=== PATIENT | male | born 1950 | race Caucasian/White ===

== ENCOUNTER 2017-03-16 08:58 | Emergency (ER) | payer OTHER, BC ==
[2017-03-16 09:05] VITALS: BP 160/85; PULSE 57; TEMP 98.9; BMI 33.2
--- NOTE | 2017-03-16 09:12 | PDOC ---
History of Present Illness - General Chief Complaint: Itching Stated Complaint: RIGHT HAND ITCHING, SWELLING Time Seen by Provider: 03/16/17 08:59 History Source: Patient Exam Limitations: No Limitations - History of Present Illness Initial Comments: 03/16/17 08:59 THis is a 67 yo RHD M with a history of hyperlipidemia who presents to the ER with a complaint of right hand itching Pt states that his symptoms began probably yesterday His girlfriend placed a cream on his hand to help with the itching No fevers or chills No pain No diaphoresis Pt has not contacted any new soaps or detergents No new foods No history of allergies No other lesions on his body PMH: HLD, Gout PSH:Bilateral Hip replacements Meds: Crestor, Asa 81 ALL: NKDA Social: denies drug use GENERAL/CONSTITUTIONAL: No: fever, chills, weakness, loss of appetite. SKIN: Yes: right hand lesions x 2 No: pallor, rash or easy bruising. GENERAL: The patient is in no acute distress. EXTREMITIES: Normal range of motion, no edema. No clubbing or cyanosis. No erythema, or tenderness. SKIN: Yes: right hand lesions x 2, erythematous urticarial lesions Past History - Past Medical History Allergies/Adverse Reactions: Allergies Allergy/AdvReac Type Severity Reaction Status Date / Time No Known Allergies Allergy Verified 03/16/17 09:01 Home Medications: Ambulatory Orders Rosuvastatin Calcium [Crestor] 10 mg PO DAILY 09/03/12 Aspirin [Aspirin EC] 81 mg PO DAILY 02/21/16 Cholecalciferol (Vitamin D3) [Vitamin D] 1,000 unit PO DAILY 02/21/16 Multivitamins [Tab-A-Vit -] 1 tab PO DAILY 02/21/16 Diphenhydramine HCl [Benadryl -] 25 mg PO Q8H PRN #10 capsule 03/16/17 Diphenhydramine [Benadryl 1% Cream -] 1 applic TP TID PRN #1 tube 03/16/17 Hydrocortisone 0.5% Cream [Hytone 0.5% Cream -] 1 applic TP TID PRN #1 tube 08/01 Anemia: No Asthma: No Cancer: No Cardiac Disorders: Yes (mvp) CVA: No COPD: No CHF: No Dementia: No Diabetes: No GI Disorders: No Disorders: No HTN: No Hypercholesterolemia: Yes Liver Disease: No Seizures: No Thyroid Disease: No - Surgical History Abdominal Surgery: No Appendectomy: No Cardiac Surgery: No Cholecystectomy: No Lung Surgery: No Neurologic Surgery: No Orthopedic Surgery: Yes (janna hip replacements) - Psycho/Social/Smoking Cessation Hx Anxiety: No Suicidal Ideation: No Smoking Status: No Smoking History: Never smoked Have you smoked in the past 12 months: No Number of Cigarettes Smoked Daily: 0 Hx Alcohol Use: No Drug/Substance Use Hx: No Substance Use Type: None Medical Decision Making - Medical Decision Making Will discharge to home Topical treatments Monitor for super infection *DC/Admit/Observation/Transfer Diagnosis at time of Disposition: Bug bite of right hand Qualifiers: Encounter type: initial encounter Qualified Code(s): S60.561A - Insect bite ( nonvenomous) of right hand, initial encounter - Discharge Dispostion Disposition: HOME Condition at time of disposition: Stable Admit: No - Prescriptions Prescriptions: Diphenhydramine [Benadryl 1% Cream -] 1 applic TP TID PRN #1 tube PRN Reason: itching Diphenhydramine HCl [Benadryl -] 25 mg PO Q8H PRN #10 capsule PRN Reason: Itching Hydrocortisone 0.5% Cream [Hytone 0.5% Cream -] 1 applic TP TID PRN #1 tube PRN Reason: itching - Referrals Referrals: Nivia Rose MD [Primary Care Provider] - - Patient Instructions Printed Discharge Instructions: DI for Insect Bites and Stings, DI for Spider Bites Additional Instructions: Thank you for coming in to the ER You can take Benadryl for itching You can apply hydrocortisone cream You can also apply Caladryl cream Monitor for increased redness or swelling Monitor yourself for fevers or chills Do not itch to the point that you cut open the skin ENJOY YOUR TRIP!!!
== END 2017-03-16 09:25 | disposition home or self-care (01) ==
LOC: SUPCPDRO 08:58 → FER 08:58
DX: S60.561A Insect bite (nonvenomous) of right hand, initial encounter (principal); X58.XXXA Exposure to other specified factors, initial encounter; Y93.89 Activity, other specified; Y92.9 Unspecified place or not applicable; E78.5 Hyperlipidemia, unspecified; I34.1 Nonrheumatic mitral (valve) prolapse
CPT/HCPCS: 99282-25

== ENCOUNTER 2017-11-23 07:29 | Day surgery (SDC) | payer OTHER, BC ==
[2017-11-22 15:58] VITALS: BMI 33.6
--- NOTE | 2017-11-23 10:30 | HP ---
History & Physical Update - History History: No Change - Physical Physical: No Change - Assessment Assessment: No Change - Plan Plan: No Change (He is being operated for left inguinal hernia with mesh. He has stopped aspirin . Procedure has been explained, site marked, and consent obtained.)
[2017-11-23] MEDS ORDERED: BUPIVACAINE HCL/PF 0.5% (5MG/ML) 10 ML VIAL ONE ×2 (11:23→14:03)
[2017-11-23] MEDS ORDERED: BUPIVACAINE HCL/PF 0.75% 10 ML VIAL ONE (11:24)
[2017-11-23] MEDS ORDERED: ceFAZolin SODIUM 1 GM VIAL IVPB ONE (11:38)
[2017-11-23] MEDS ORDERED: PROPOFOL 20 ML ONE ×2 (11:45→12:54)
[2017-11-23] MEDS ORDERED: MIDAZOLAM HCL 2 MG/2 ML SINGLE DOSE VIAL ONE ×3 (11:45→12:32)
[2017-11-23] MEDS ORDERED: ceFAZolin SODIUM 1 GM VIAL ONE (11:57)
[2017-11-23] MEDS ORDERED: ePHEDrine SULFATE 50 MG/1 ML AMPULE ONE (12:07)
[2017-11-23] MEDS ORDERED: BUPIVACAINE HCL/PF 0.5% (5MG/ML) 10 ML VIAL IJ ONE (13:31)
--- NOTE | 2017-11-23 14:12 | OP ---
Operative Note - Note: Operative Date: 11/23/17 Operation: Large incarcerated left inguinal hernia. Findings: Large direct inguinal hernia with adhesions. Patient is s/p varococelectomy. Defect throughout the posterior wall of the inguinal canal. Repaired with 2 plugs and a mesh. Implants: Plug and mesh. Surgeon: Hank Williamson Anesthesiologist/UNDER PRESSER: Lamont Richards Anesthesia: Spinal Specimens Removed: Lipoma of the cord. Estimated Blood Loss (mls): 5 Operative Report Dictated: Yes
[2017-11-23] MEDS ORDERED: ONDANSETRON 4 MG/2 ML VIAL IVPUSH PRN (14:20)
[2017-11-23] MEDS ORDERED: oxyCODONE HCL 5 MG TABLET PO PRN (14:20)
[2017-11-23] MEDS ORDERED: LACTATED RINGERS SOLUTION 1,000 ML IV SCH (14:30)
--- NOTE | 2017-11-23 16:12 | OP ---
DATE OF OPERATION: 11/23/2017 POSTOPERATIVE DIAGNOSIS: Very large incarcerated direct left inguinal hernia with extensive adhesions from previous varicocelectomy. PROCEDURE PERFORMED: Repair of large incarcerated inguinal hernia on the left side with plug and mesh, and lysis of adhesions. SURGEON: Jaimie Williamson MD ANESTHESIA: Spinal anesthesia with intravenous sedation. ESTIMATED BLOOD LOSS: Less than 10 mL. INDICATIONS: This 67-year-old gentleman with severe anxiety had a large incarcerated left inguinal hernia. There was a large bulge which was painful and increasing in size. He had previous varicocelectomy many years ago on the same side. Impulse on cough on the right side. The patient was brought in for repair of the incarcerated left inguinal hernia. Different modalities of treatment, from open approach to a laparoscopic approach, had been discussed with the patient in the office. DESCRIPTION OF PROCEDURE: The patient was given spinal anesthesia and placed on the operating table. He was also given intravenous sedation. He was quite anxious and has a history of anxiety. The lower abdomen was painted and draped. A time- out was called. An oblique incision was made along the skin crease in the left groin. This was deepened to incise the skin, subcutaneous tissue, Thor fascia and the external oblique aponeurosis. There was dense scar tissue on the middle aspect of the left groin. This was carefully and the cord structures were and identified. This was isolated around a 1/2-inch Cooper drain. The patient lacked any musculature of the posterior wall of the inguinal canal. There was protrusion of the peritoneum and the abdominal contents through the posterior wall of the inguinal canal. This was carefully from the rest of the cord structures. There was some large subcutaneous fat and lipoma of the cord which was excised. Once this was done, the peritoneum was pushed into the abdomen. There was a defect from the pubic symphysis to the cord structures, viz. complete posterior wall of the inguinal canal. The was then dissected, again all adhesions. Two large plugs were then inserted through the defect, pushing the peritoneum backwards. The medial plug was sutured inferiorly to Los ligament or to the surface of the pubic crest with 2-0 Prolene sutures. Superiorly, the superior leaf of the mesh of the plug , was anchored to the posterior wall of the inguinal canal, namely the transversalis and the internal oblique muscles and fscia. A 2-0 Prolene suture was passed, through the internal oblique and transversus abdominis muscle, and then through, the outer leaf of the mesh. The suture was then reintroduced through the defect, and brought out through the internal oblique as well as the transversus abdominis muscle. The defect required 2 plugs which were placed behind the defect. The plug was then inserted through the defect, pushing the peritoneum cephalad and posteriorly. A large mesh was then placed across the defect from the shelving edge of inguinal ligament to the internal oblique and transversus abdominis muscle. Medially, the mesh was anchored at the level of the pubic tubercle with 2-0 Prolene sutures. The inferior leaf of the mesh was sutured to the shelving edge of the inguinal ligament with interrupted 2-0 Prolene as well as with the VersaTack tacking device. The superior leaf of the mesh was incorporated to the Prolene suture holding the plug behind the abdominal wall, bringing the 2 limbs of the suture through the mesh and then tying the knot. Thus the plug and the mesh were anchored together with the abdominal wall sandwiched in between by the Prolene sutures. Laterally, the 2 limbs of the mesh were brought around the cord structures and anchored over the internal oblique muscle. Thus the repair was adequately performed, creating a new posterior wall of the inguinal canal, consisting of the plug and the mesh. Hemostasis was satisfactory at the completion of the procedure. Sponge and instrument count was correct at the completion of the procedure. The external oblique aponeurosis was then approximated with continuous 2-0 Vicryl sutures. Thor fascia was approximated with buried interrupted 3-0 Vicryl sutures. The subcutaneous fat was approximated again with buried interrupted 3-0 Vicryl sutures. The skin was approximated with continuous 4-0 Monocryl sutures in a running subcuticular fashion. Dermabond was applied across the skin edges. The patient tolerated the procedure well and was sent to the recovery room in satisfactory and stable condition. Rashmi [id number] MTDD
[2017-11-23 16:32] VITALS: PULSE 66; TEMP 98
[2017-11-23 16:38] VITALS: BP 128/70
--- NOTE | 2017-11-26 15:11 | PATH ---
Surgical Pathology Report Patient Name: FREDDIE LANGE [facility]. Rec. #: [id number] /Age/Gender: 1950 (Age: 67) / M Account: [id number] Location: [facility] SURGICAL Taken: 11/23/2017 Received: 11/23/2017 Reported: 11/26/2017 Physicians: Jaimie Williamson M.D. Specimen(s) Received LIPOMA OF SPERMATIC CORD Clinical History He Incarcerated left inguinal hernia Final Diagnosis SPERMATIC CORD, LIPOMA, INGUINAL HERNIA REPAIR:MATURE FIBROADIPOSE TISSUE CONSISTENT WITH LIPOMA/HERNIA CONTENTS. Electronically Signed Kasie Thomas M.D. Gross Description Received in formalin labeled "lipoma of spermatic cord," is a 4.3 x 1.6 x 1.3 cm portion of boswell-pink fibrofatty tissue. Firer Locomotive sections are submitted in one cassette. /11/23/2017 saudi/11/23/2017
== END 2017-11-23 16:42 | disposition home or self-care (01) ==
LOC: JASU-SURG 07:29
PROVIDERS: ATTEND Specialist
PROC: 0YU60JZ Supplement Left Inguinal Region with Synthetic Substitute, Open Approach (ICD-10-PCS; principal; 2017-11-23 09:30)
DX: K40.30 Unilateral inguinal hernia, with obstruction, without gangrene, not specified as recurrent (principal); K66.0 Peritoneal adhesions (postprocedural) (postinfection)
CPT/HCPCS: 88304-TC; 94760

== ENCOUNTER 2017-12-04 11:09 | Day surgery (SDC) | payer OTHER, BC ==
[2017-12-03 16:35] VITALS: BMI 33.6
[2017-12-04] MEDS ORDERED: LIDOCAINE HCL 2% JELLY 10 ML CARTRIDGE ONE (14:37)
[2017-12-04] MEDS ORDERED: PROPOFOL 20 ML ONE (14:43)
[2017-12-04] MEDS ORDERED: MIDAZOLAM HCL 2 MG/2 ML SINGLE DOSE VIAL ONE (14:43)
[2017-12-04] MEDS ORDERED: ceFAZolin SODIUM 1 GM VIAL ONE ×2 (14:58→21:57)
[2017-12-04] MEDS ORDERED: ceFAZolin SODIUM 1 GM VIAL IVPB ONE (15:01)
[2017-12-04] MEDS ORDERED: DEXAMETHASONE SOD PHOSPHATE 4 MG/1 ML VIAL ONE (15:05)
[2017-12-04] MEDS ORDERED: SUCCINYLCHOLINE CHLORIDE 200 MG/10 ML VIAL ONE (15:40)
[2017-12-04] MEDS ORDERED: oxyCODONE HCL 5 MG TABLET PO PRN (16:16)
--- NOTE | 2017-12-04 16:18 | OP ---
Operative Note - Note: Operative Date: 12/04/17 Pre-Operative Diagnosis: Bladder Calculus Operation: Cysto Laser lithotripsy Bladder Calculus Findings: Large Bladder Calculus Post-Operative Diagnosis: Same as Pre-op Surgeon: Haroldo Joshi Anesthesia: General Drains & Tubes with Location: 20 F Parikh
[2017-12-04] MEDS ORDERED: ONDANSETRON 4 MG/2 ML VIAL IVPUSH PRN (16:26)
[2017-12-04] MEDS ORDERED: ACETAMINOPHEN 325 MG TABLET (FP) PO PRN (16:26)
[2017-12-04] MEDS ORDERED: LACTATED RINGERS SOLUTION 1,000 ML IV SCH (16:30)
[2017-12-04] MEDS ORDERED: CEFAZOLIN 1 GM in DEXTROSE 5%-WATER - 50 ML IVPB SCH (18:00)
--- NOTE | 2017-12-04 18:06 | OP ---
DATE OF OPERATION: 12/04/2017 SURGEON: Haroldo Joshi M.D. ANESTHESIA: General. PREOPERATIVE DIAGNOSIS: Large bladder calculus. POSTOPERATIVE DIAGNOSIS: Large bladder calculus. PROCEDURE: Cystoscopy, laser lithotripsy, bladder calculus. FINDINGS: Urethra normal, trilobar hypertrophy of the prostate noted, moderately in nature. Within the bladder seen a very large egg-shaped yellow bladder calculus, rest of the bladder found to be normal. DESCRIPTION OF PROCEDURE: Patient in lithotomy position, under anesthesia was prepped and draped in the usual manner; using 22 continuous flow cystoscope and 1000 micron laser fiber, the large calculus was chipped away from the edges as not to break it in big pieces. It was chiseled in such a way to form small dust. After a long procedure, the stone was completely fragmented and using Elick's, fragments were evacuated. Repeat cystoscopy showed no evidence of any fragments within the bladder. A number 20 Parikh was left indwelling. Patient tolerated the procedure well and left the operating room in a satisfactory condition. Incidentally during the procedure, patient went into some kind of respiratory problem, his oxygen saturation went down rapidly, so the procedure was stopped until he recovered. According to the anesthesiologist, nothing was serious, but it was still decided to keep him overnight for observation. HAROLDO JOSHI M.D. [id number] MTDD
[2017-12-04] MEDS: DEXTROSE 5%-0.45% SALINE 1,000 ML IV SCH (19:45)
[2017-12-04] MEDS ORDERED: DEXTROSE 5%-WATER - 50 ML IVPB ONE (21:57)
[2017-12-04] MEDS: CEFAZOLIN 1 GM in DEXTROSE 5%-WATER - 50 ML IVPB SCH (21:59)
[2017-12-05] MEDS ORDERED: ceFAZolin SODIUM 1 GM VIAL ONE (05:49)
[2017-12-05] MEDS ORDERED: DEXTROSE 5%-WATER - 50 ML IVPB ONE (05:49)
[2017-12-05] MEDS: CEFAZOLIN 1 GM in DEXTROSE 5%-WATER - 50 ML IVPB SCH (06:00)
[2017-12-05] MEDS: DEXTROSE 5%-0.45% SALINE 1,000 ML IV SCH (06:39)
[2017-12-05 07:06] VITALS: BP 117/66; PULSE 58; TEMP 97.7
--- NOTE | 2017-12-06 18:11 | PATH ---
Surgical Pathology Report Patient Name: FREDDIE LANGE [facility]. Rec. #: [id number] /Age/Gender: 1950 (Age: 67) / M Account: [id number] Location: [facility] SURGICAL Taken: 12/04/2017 Received: 12/05/2017 Reported: 12/06/2017 Physicians: Haroldo Joshi M.D. Specimen(s) Received BLADDER STONES Clinical History Bladder stones Final Diagnosis BLADDER STONES, LITHOTRIPSY AND STONE REMOVAL: BLADDER CALCULI. MACROSCOPIC DIAGNOSIS. Electronically Signed Kasie Thomas M.D. Gross Description Received fresh labeled "bladder stones," is a 2.5 x 1.5 x 0.5 cm aggregate of boswell, irregular to fragmented calculi. The specimen is sent for chemical analysis. /12/05/2017 saudi12/05/2017
[2017-12-17 14:13] LABS: URIC ACID 100 % (.); WEIGHT 1818.8 mg (.)
== END 2017-12-05 09:50 | disposition home or self-care (01) ==
LOC: JASU-SURG 11:09 → J5S 20:14 → JASU-SURG 12-05 09:50
PROVIDERS: ATTEND Urology
PROC: 0TCB8ZZ Extirpation of Matter from Bladder, Via Natural or Artificial Opening Endoscopic (ICD-10-PCS; principal; 2017-12-04 13:00)
DX: N21.0 Calculus in bladder (principal); E78.5 Hyperlipidemia, unspecified; I34.1 Nonrheumatic mitral (valve) prolapse; E55.9 Vitamin D deficiency, unspecified
CPT/HCPCS: 36415; 82360; 88300-TC; 94760

== ENCOUNTER 2018-11-10 07:20 | Emergency (ER) | payer OTHER, BC ==
[2018-11-10 07:32] VITALS: BP 162/79; PULSE 80; TEMP 99; BMI 32.5
--- NOTE | 2018-11-10 07:41 | PDOC ---
History of Present Illness - General Chief Complaint: Pain Stated Complaint: BLOATING Time Seen by Provider: 11/10/18 07:34 History Source: Patient Exam Limitations: No Limitations - History of Present Illness Travel History: No Initial Comments: 11/10/18 07:36 68 y/o male with mild abdominal discomfort and nausea since Sunday. Denies vomiting or diarrhea. Feeling better today. Continues to have a normal appetite. No fever or chills. No sick contacts or traveling. Has not taken anything new. Patient denies fall or trauma. Also has tried doing new abdominal exercises on Sunday as well and thinks that may have added to his pain. No back pain or dysuria. Mild bloating at times. 11/10/18 07:42 Timing/Duration: reports: gone now Quality: reports: mild Abdominal Pain Onset Location: reports: flank Pain Radiation: reports: no radiation Past History - Past Medical History Allergies/Adverse Reactions: Allergies Allergy/AdvReac Type Severity Reaction Status Date / Time No Known Allergies Allergy Verified 11/10/18 07:21 Home Medications: Ambulatory Orders Rosuvastatin Calcium [Crestor] 10 mg PO DAILY 09/03/12 Aspirin [Aspirin EC] 81 mg PO DAILY 02/21/16 Cholecalciferol (Vitamin D3) [Vitamin D] 1,000 unit PO DAILY 02/21/16 Multivitamins [Tab-A-Vit -] 1 tab PO DAILY 02/21/16 Allopurinol 300 mg PO DAILY 11/10/18 Losartan Potassium 25 mg PO DAILY 11/10/18 Anemia: No Asthma: No Cancer: No Cardiac Disorders: Yes (mvp) CVA: No COPD: No CHF: No Dementia: No Diabetes: No GI Disorders: No Disorders: No HTN: No Hypercholesterolemia: Yes Liver Disease: No Seizures: No Thyroid Disease: No - Surgical History Abdominal Surgery: Yes (hernia sx 11/2017) Appendectomy: No Cardiac Surgery: No Cholecystectomy: No Lung Surgery: No Neurologic Surgery: No Orthopedic Surgery: Yes (janna hip replacements) - Suicide/Smoking/Psychosocial Hx Smoking Status: No Smoking History: Never smoked Have you smoked in the past 12 months: No Number of Cigarettes Smoked Daily: 0 Information on smoking cessation initiated: No Hx Alcohol Use: No Drug/Substance Use Hx: No Substance Use Type: None Hx Substance Use Treatment: No Review of Systems - Review of Systems Able to Perform ROS?: Yes Is the patient limited Lithuanian proficient: No Constitutional: No: Chills, Fever Respiratory: No: Cough, Shortness of Breath Cardiac (ROS): No: Chest Pain, Palpitations ABD/GI: Yes: Nausea. No: Abdominal Distended, Diarrhea, Vomiting : No: Burning, Dysuria All Other Systems: Reviewed and Negative *Physical Exam - Vital Signs Last Vital Signs Temp Pulse Resp BP Pulse Ox 99 F 80 20 162/79 96 11/10/18 07:21 11/10/18 07:21 11/10/18 07:21 11/10/18 07:21 11/10/18 07:21 - Physical Exam General Appearance: Yes: Nourished, Appropriately Dressed. No: Apparent Distress HEENT: positive: EOMI, LUIS ALBERTO, Normal ENT Inspection, Normal Voice, Pharynx Normal Neck: positive: Trachea midline, Normal Thyroid, Supple. negative: Tender, Rigid Respiratory/Chest: positive: Lungs Clear, Normal Breath Sounds. negative: Chest Tender, Respiratory Distress Cardiovascular: positive: Regular Rhythm, Regular Rate, S1, S2. negative: Edema , JVD, Murmur Vascular Pulses: Femoral (R): 4+, Femoral (L): 4+, Carotid (R): 4+, Carotid (L) : 4+, Dorsalis-Pedis (R): 4+, Doralis-Pedis (L): 4+ Gastrointestinal/Abdominal: positive: Normal Bowel Sounds, Flat, Soft, Other ( soft no RLQ, LLQ or RUQ or LUQ tenderness no pulsatile mass +BS). negative: Tender, Organomegaly, Pulsatile Mass, Hernia Lymphatic: negative: Adenopathy, Tenderness, Other Musculoskeletal: positive: Normal Inspection. negative: CVA Tenderness, CVA Tenderness (R), CVA Tenderness (L) Extremity: positive: Normal Capillary Refill, Normal Inspection, Normal Range of Motion Integumentary: positive: Normal Color, Dry, Warm Neurologic: positive: grief counsellor II-XII NML intact, Fully Oriented, Alert, Normal Mood/ Affect, Normal Response, Motor Strength 5/5 ED Treatment Course - RADIOLOGY Radiology Studies Ordered: Category Date Time Status ABDOMEN [id number] [RAD] Stat Radiology 11/10/18 07:35 Ordered Progress Note - Progress Note Progress Note: Patient appears to have a resolving gastroenteritis Will obtain x-ray and UA Results normal Abd x-ray no obstruction Will send patient home Fluids, rest If worsen return to ER Patient is in agreement with plan If pain persists will need CT abdomen, pt in agreement. Pt is not writhing in pain, although trace amount of blood discussed possibility of kidney stone with patient, since pain in right flank area, no hematuria or dysuria. No hx of kidney stones. *DC/Admit/Observation/Transfer Diagnosis at time of Disposition: Gastroenteritis - Discharge Dispostion Disposition: HOME Condition at time of disposition: Improved Decision to Admit order: No - Referrals - Patient Instructions Printed Discharge Instructions: DI for Viral Gastroenteritis -- Adult Additional Instructions: Fluids, rest, Tylenol If increase pain, vomiting or fever return to ER fro CT abdomen/pelvis - Post Discharge Activity
[2018-11-10 08:29] LABS: EPITHELIAL CELLS RARE /hpf
== END 2018-11-10 08:48 | disposition home or self-care (01) ==
LOC: FER 07:20
DX: K52.9 Noninfective gastroenteritis and colitis, unspecified (principal); I34.1 Nonrheumatic mitral (valve) prolapse; E78.00 Pure hypercholesterolemia, unspecified; Z79.82 Long term (current) use of aspirin; Z96.643 Presence of artificial hip joint, bilateral
CPT/HCPCS: 74021-TC-FY; 81003; 81015; 99282-25

== ENCOUNTER 2019-05-23 07:32 | Emergency (ER) | payer OTHER, BC ==
--- NOTE | 2019-05-23 07:48 | PDOC ---
History of Present Illness - General Chief Complaint: Lightheaded Stated Complaint: DIZZY WHEN LIFTING HIS HEAD THIS AM Time Seen by Provider: 05/23/19 07:47 - History of Present Illness Initial Comments: 05/23/19 08:16 Chief complaint: Vertigo HPI: Patient has been having URI symptoms with nasal congestion and watery nasal discharge for 1 to 2 weeks. No fever or cough. He also has chronic hearing loss, and tinnitus. But no exacerbation recently of the symptoms. Awoke this morning and noted transient spinning sensation after rapidly jumping out of bed. This only lasted several seconds. However, it recurred several more times with rapid movement of his head. There was also transient nausea. All symptoms have now resolved. There were no other associated neurological symptoms, change in vision, focal neurologic symptoms or unsteadiness of gait. Review of systems: As noted above, otherwise negative Past medical history: No cardiac disease other than mild mitral valve prolapse. No neurologic disease. History of kidney stones and right rotator cuff tendinitis. Social history: Retired poultry farmworker, active, exercises regularly without difficulty. No tobacco alcohol or drugs Family history reviewed and noncontributory including early coronary artery disease, neurologic disease including aneurysms, metabolic diseases including diabetes, and cancer Physical exam: Alert and oriented well-developed well-nourished no acute distress cheerful and cooperative Afebrile, vital signs normal PERRLA 4 mm, fundi benign with sharp disc margins and good central venous pulsations. No hemorrhages or exudates Conjunctivae clear. Visual hu intact to confrontation. No nystagmus. No blurred vision or diplopia. Neck supple without bruit mass or nodes Chest clear CV regular without murmur rub or gallop pulses full and symmetric no JVD or edema no bruits Abdomen benign Neurological C2 to 12 intact. Strength full and symmetric. No focal sensorimotor deficits. Gait stable and unimpaired. Cerebellar function intact. Could not reproduce symptoms with rapid head movement or change of position. Impression: URI, nasal congestion, with secondary vestibular irritation/ inflammation. No other neurologic findings. No sign of CVA/TIA or other neurologic disease. Plan: Symptomatic treatment, return to ER if symptoms worsen or additional symptoms develop, follow-up primary physician as directed. Past History - Past Medical History Allergies/Adverse Reactions: Allergies Allergy/AdvReac Type Severity Reaction Status Date / Time No Known Allergies Allergy Verified 05/23/19 07:34 Home Medications: Ambulatory Orders Rosuvastatin Calcium [Crestor] 10 mg PO DAILY 09/03/12 Aspirin [Aspirin EC] 81 mg PO DAILY 02/21/16 Cholecalciferol (Vitamin D3) [Vitamin D3] 1,000 unit PO DAILY 02/21/16 Multivitamins [Multivit ([facility] Formulary)] 1 tab PO DAILY 02/21/16 Allopurinol 300 mg PO DAILY 11/10/18 Losartan Potassium 25 mg PO DAILY 11/10/18 Duloxetine HCl 40 mg PO DAILY 05/23/19 Meclizine HCl [Antivert -] 25 mg PO TID PRN #20 tablet 05/23/19 Anemia: No Asthma: No Cancer: No Cardiac Disorders: Yes (mvp) CVA: No COPD: No CHF: No Dementia: No Diabetes: No GI Disorders: No Disorders: No HTN: No Hypercholesterolemia: Yes Liver Disease: No Seizures: No Thyroid Disease: No - Surgical History Abdominal Surgery: Yes (hernia sx 11/2017) Appendectomy: No Cardiac Surgery: No Cholecystectomy: No Lung Surgery: No Neurologic Surgery: No Orthopedic Surgery: Yes (janna hip replacements) - Psycho Social/Smoking Cessation Hx Smoking Status: No Smoking History: Never smoked Have you smoked in the past 12 months: No Number of Cigarettes Smoked Daily: 0 Hx Alcohol Use: No Drug/Substance Use Hx: No Substance Use Type: None Hx Substance Use Treatment: No Medical Decision Making - Medical Decision Making 05/23/19 08:23 No further symptoms with meclizine administration. Continue meclizine. Follow- up as directed. Discharge - Discharge Information Problems reviewed: Yes Clinical Impression/Diagnosis: Vertigo Condition: Improved Disposition: HOME - Admission No - Additional Discharge Information Prescriptions: Meclizine HCl [Antivert -] 25 mg PO TID PRN #20 tablet PRN Reason: dizziness, vertigo, nausea - Follow up/Referral Referrals: Nivia Rose MD [Primary Care Provider] - 3 days - Patient Discharge Instructions Patient Printed Discharge Instructions: DI for Vertigo Additional Instructions: Arise/change positions slowly and deliberately. Avoid rapid head movements. Medication as directed If symptoms worsen, or additional symptoms develop, return to ER. Otherwise follow-up with Dr. Rose as directed. - Post Discharge Activity
[2019-05-23 07:56] VITALS: TEMP 98.4; BMI 33.2
[2019-05-23] MEDS ORDERED: MECLIZINE HCL 25 MG TABLET (FP) PO ONE (08:02)
[2019-05-23] MEDS ORDERED: MECLIZINE HCL 25 MG TABLET (FP) ONE (08:04)
[2019-05-23 08:48] VITALS: BP 129/73; PULSE 59
== END 2019-05-23 09:13 | disposition home or self-care (01) ==
LOC: FER 07:32
DX: R42 Dizziness and giddiness (principal); E78.00 Pure hypercholesterolemia, unspecified; H91.90 Unspecified hearing loss, unspecified ear; H93.19 Tinnitus, unspecified ear; I34.1 Nonrheumatic mitral (valve) prolapse; Z87.442 Personal history of urinary calculi; Z79.82 Long term (current) use of aspirin; Z96.643 Presence of artificial hip joint, bilateral
CPT/HCPCS: 99281-25

== ENCOUNTER 2021-11-09 04:07 | Emergency (ER) | payer OTHER, BC ==
[2021-11-09 04:16] VITALS: BP 153/78; PULSE 102; TEMP 100; BMI 34.0
== END 2021-11-09 04:23 | disposition home or self-care (01) ==
LOC: FER 04:07
DX: R50.9 Fever, unspecified (principal); J02.9 Acute pharyngitis, unspecified; R09.81 Nasal congestion
CPT/HCPCS: 99281-25